=== PATIENT | female | born 1960 | race Caucasian/White ===

== ENCOUNTER → 2017-03-22 | Outpatient (CLI) | payer BC ==
[~2017-03-22] MED LIST: ADVIN25/60 INH; IBUP600T44 PO; LCTX PO; MONT1TAB5 PO
--- NOTE | 2017-03-22 13:34 | MAMMOGRAPHY REPORT ---
BILATERAL DIGITAL SCREENING MAMMOGRAM TOMOSYNTHESIS WITH CAD: 03/22/2017 CLINICAL HISTORY: Routine screening. Patient has no complaints. TECHNIQUE: Breast tomosynthesis in addition to standard 2D mammography was performed. Current study was also evaluated with a Computer Aided Detection (CAD) system. COMPARISON: Comparison is made to exams dated: 03/02/2016 mammogram, 02/24/2015 mammogram, 02/11/2015 ma mmogram, 10/05/2009 mammogram, 05/22/2005 mammogram, and 06/27/2001 mammogram - [facility]. BREAST COMPOSITION: There are scattered areas of fibroglandular density in both breasts. FINDINGS: No suspicious masses, calcifications, or areas of architectural distortion are noted in ei ther breast. There has been no significant interval change compared to prior exams. Scattered bilater al benign-appearing calcifications are not significantly changed. IMPRESSION: ACR BI-RADS CATEGORY 2: BENIGN There is no mammographic evidence of malignancy. A 1 year screening mammogram is recommended. The pa tient will receive written notification of the results. Approximately 10% of breast cancers are not detected with mammography. A negative mammographic report should not delay biopsy if a clinically suggestive mass is present. Ira Lehman M.D. /:03/22/2017 12:27:03 Suture Gauger: Therese SANCHEZ)(Jyoti)(BD), [facility] letter sent: Normal 1/2 BI-RADS Code: ACR BI-RADS Category 2: Benign
== END | disposition home or self-care (01) ==
LOC: C.MAMM 09:54
PROVIDERS: ATTEND Obstetrics & Gynecology
DX: Z12.31 Encounter for screening mammogram for malignant neoplasm of breast (principal)

== ENCOUNTER → 2017-10-17 | Outpatient (CLI) | payer BC, OTHER ==
--- NOTE | 2017-10-17 13:48 | DIAGNOSTIC IMAGING REPORT ---
R KNEE 3 VIEWS CLINICAL HISTORY: RIGHT KNEE PAIN COMPARISON STUDY: None. FINDINGS: No fracture or dislocation within the right knee. Mild osteoarthritis within the lateral patellofemoral compartment. No knee effusion. Soft tissues are unremarkable. IMPRESSION: Mild patellofemoral osteoarthritis. No fractures within the right knee. Electronically signed by: Willie Mays M.D. 10/17/2017 1:46 PM Dictated Date/Time: 10/17/2017 1:45 PM
== END | disposition home or self-care (01) ==
LOC: C.RDSM 13:34
PROVIDERS: ATTEND Family Medicine
DX: M25.561 Pain in right knee (principal)

== ENCOUNTER → 2017-11-15 | Outpatient (CLI) | payer OTHER ==
--- NOTE | 2017-11-15 16:28 | DIAGNOSTIC IMAGING REPORT ---
R LOWER EXT JOINT WITHOUT CLINICAL HISTORY: 57 years-old Female with RIGHT KNEE PAIN. Acute right knee pain COMPARISON: Knee radiographs 10/17/2017 TECHNIQUE: Multiplanar, multisequence MRI of the right knee was performed without intravenous contrast. FINDINGS: MENISCI: The medial meniscus is normal in position, morphology and signal. There is a linear area of increased T2 signal involving the lateral meniscal body with apparent extension to both the superior and inferior reticular surface as nicely seen on image 16 series 9 and to lesser extent on image 4 series 6 suggesting particle longitudinal tear without displaced fragment or parameniscal cyst. Mild associated irregularity of the free edge lateral meniscus. CRUCIATE LIGAMENTS: The anterior and posterior cruciate ligaments are normal in signal, morphology and course. COLLATERAL LIGAMENTS: The popliteus tendon, biceps femoris tendon, fibular collateral ligament and iliotibial band are intact. The superficial and deep components of the medial collateral ligament are intact. EXTENSOR MECHANISM: The quadriceps and patellar tendons are intact. The medial and lateral patellar retinacula are intact. KNEE JOINT: There is no large joint effusion. 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 Areas of low-grade and intermediate grade chondromalacia involve the patellar apex and lateral patellar facet as well as the mid trochlear groove. No high-grade chondromalacia or intra-articular loose bodies identified.. BONE MARROW: The bone marrow signal is age appropriate. No fracture, marrow edema, or marrow replacing process. SOFT TISSUES: Alvares's cyst is noted measuring up to 2.4 x 2.7 x 7.3 cm with leaking fluid noted posteriorly and inferiorly to the medial head gastrocnemius measuring up to 3.4 cm in dimension compatible with leaking component of the Alvares's cyst. There is trace fluid within the deep prepatellar bursa with mild nonspecific subcutaneous edema anterior to the patellar tendon. Mild edema of the suprapatellar fat pad. IMPRESSION: 1. Vertical longitudinal tear of the lateral meniscal body without displaced fragment or parameniscal cyst. 2. Areas of low-grade chondromalacia involve the mid and posterior weightbearing portion of the lateral femoral condyle with low-grade and intermediate grade chondromalacia involving the patellar apex, lateral patellar facet and mid trochlear groove. No high-grade chondral loss or intra-articular loose body. 3. Leaking Alvares's cyst. 4. No evidence of acute ligamentous injury. The above report was generated using voice recognition software. It may contain grammatical, syntax or spelling errors. Electronically signed by: Sudhakar Benton M.D. 11/15/2017 4:27 PM Dictated Date/Time: 11/15/2017 4:18 PM
== END | disposition home or self-care (01) ==
LOC: C.MRIBC 15:34
PROVIDERS: ATTEND Orthopaedic Surgery
DX: S83.281A Other tear of lateral meniscus, current injury, right knee, initial encounter (principal); M71.21 Synovial cyst of popliteal space [Baker], right knee; X58.XXXA Exposure to other specified factors, initial encounter